=== PATIENT | male | born 1985 | race Caucasian/White ===

== ENCOUNTER → 2022-01-11 17:11 | Outpatient (BNVA) | payer OTHER, SELFPAY | PROVIDERS: Family Provider Electrodiagnostic Medicine; PCP Family Medicine; Visit Provider Family Medicine | DX: Z76.89 Persons encountering health services in other specified circumstances (principal) | CPT/HCPCS: 80053; 85025 ==

== ENCOUNTER 2022-04-17 14:36 | Outpatient (CLI) | payer OTHER, SELFPAY ==
--- NOTE | 2022-04-17 15:04 | XR_ITS ---
WS: [id number] RIGHT SHOULDER: 2 VIEW(S) TECHNIQUE: Internal and external rotation. HISTORY: right shoulder pain COMPARISON: None available. No fracture or dislocation or soft tissue abnormality. Very minimal narrowing of the AC joint. Visualized RIGHT upper lung is clear. XR/XR shoulder RT min 2V* [id number] IMPRESSION: Mild AC joint narrowing.
== END 2022-04-17 14:37 | disposition home or self-care (01) ==
PROVIDERS: PCP Family Medicine; Visit Provider Family Medicine
DX: M75.41 Impingement syndrome of right shoulder (principal)
CPT/HCPCS: 73030

== ENCOUNTER → 2023-03-15 15:27 | Outpatient (BNVA) | payer OTHER, SELFPAY | PROVIDERS: PCP Family Medicine; Visit Provider Family Medicine | DX: E66.01 Morbid (severe) obesity due to excess calories (principal); R53.83 Other fatigue; R35.1 Nocturia | CPT/HCPCS: 80053; 80061; 84153; 84403; 84443; 85025 ==

== ENCOUNTER → 2023-03-20 08:29 | Outpatient (BNVA) | payer SELFPAY | PROVIDERS: PCP Family Medicine; Visit Provider Family Medicine | DX: R53.83 Other fatigue (principal) | CPT/HCPCS: 84403 ==

== ENCOUNTER → 2023-06-05 13:28 | Outpatient (BNVA) | payer OTHER, SELFPAY | PROVIDERS: PCP Family Medicine; Visit Provider Family Medicine | DX: R79.89 Other specified abnormal findings of blood chemistry (principal); Z13.6 Encounter for screening for cardiovascular disorders | CPT/HCPCS: 85025 ==

== ENCOUNTER → 2023-06-12 07:23 | Outpatient (BNVA) | payer OTHER, SELFPAY | PROVIDERS: PCP Family Medicine; Visit Provider Family Medicine | DX: R79.89 Other specified abnormal findings of blood chemistry (principal); Z13.6 Encounter for screening for cardiovascular disorders | CPT/HCPCS: 84403; 85025 ==

== ENCOUNTER → 2023-07-23 13:11 | Outpatient (BNVA) | payer OTHER, SELFPAY | PROVIDERS: PCP Family Medicine; Visit Provider Family Medicine | DX: R79.89 Other specified abnormal findings of blood chemistry (principal) | CPT/HCPCS: 84403 ==

== ENCOUNTER 2023-08-01 15:14 | Outpatient (CLI) | payer OTHER, SELFPAY ==
--- NOTE | 2023-08-01 15:30 | US_ITS ---
WS: [id number] TESTICULAR ULTRASOUND HISTORY: bilateral testicular pain COMPARISON: None available. TECHNIQUE: Real-time and color Doppler imaging or utilized to perform a testicular ultrasound. Right testicle: 3.9 cm x 2.5 cm x 1.6 cm. Normal size and echogenicity. No mass or torsion. Normal color Doppler is present throughout. Systolic and diastolic velocities are both present. No significant hydrocele. Right epididymis: Normal epididymis with no increased vascularity. Left testicle: 3.8 cm x 2.6 cm x 1.8 cm. Normal size and echogenicity. No mass or torsion. Normal color Doppler is present throughout. Systolic and diastolic velocities are both present. No significant hydrocele. Left epididymis: LEFT spermatocele measures 7 x 7 x 6 mm. No increased vascularity. Minimal LEFT vari cocele. IMPRESSION: 1. No testicular mass or torsion. 2. Small LEFT spermatocele. 3. Mild LEFT varicocele.
== END 2023-08-01 15:15 | disposition home or self-care (01) ==
PROVIDERS: PCP Family Medicine; Visit Provider Family Medicine
DX: N50.811 Right testicular pain (principal); N50.812 Left testicular pain; N43.40 Spermatocele of epididymis, unspecified; I86.1 Scrotal varices
CPT/HCPCS: 76870

== ENCOUNTER → 2023-11-02 07:46 | Outpatient (BNVA) | payer OTHER, SELFPAY | PROVIDERS: PCP Family Medicine; Visit Provider Family Medicine | DX: R79.89 Other specified abnormal findings of blood chemistry (principal) | CPT/HCPCS: 84403 ==

== ENCOUNTER → 2023-11-18 10:23 | Outpatient (BNVA) | payer OTHER, SELFPAY | PROVIDERS: PCP Family Medicine; Visit Provider Nurse Practitioner | DX: R09.81 Nasal congestion (principal); J01.90 Acute sinusitis, unspecified; J01.40 Acute pansinusitis, unspecified | CPT/HCPCS: 87400 ==

== ENCOUNTER → 2023-12-10 13:23 | Outpatient (BNVA) | payer OTHER, SELFPAY | PROVIDERS: PCP Family Medicine; Visit Provider Nurse Practitioner Family | DX: R39.9 Unspecified symptoms and signs involving the genitourinary system (principal); N39.0 Urinary tract infection, site not specified | CPT/HCPCS: 81000; 87086 ==

== ENCOUNTER → 2023-12-21 10:36 | Outpatient (BNVA) | payer OTHER, SELFPAY | PROVIDERS: PCP Family Medicine; Visit Provider Family Medicine | DX: R30.0 Dysuria (principal); R79.89 Other specified abnormal findings of blood chemistry | CPT/HCPCS: 81000 ==

== ENCOUNTER 2024-01-09 09:34 | Outpatient (CLI) | payer OTHER, SELFPAY ==
[2024-01-09] MEDS: iohexol 300 mg/mL 100 mL Btl PO (10:11)
--- NOTE | 2024-01-09 11:00 | CT_ITS ---
WS: [id number] Examination: CT abdomen pelvis w con* [id number] Reason for Exam: rlq pain, hematuria for 4 weeks Date: January 09, 2024 Comparison: None. DLP: 1009.[address] scans at [facility] use at least one of these dose optimization techniques: automated e xposure control; mA and/or kV adjustment per patient size (includes targeted exams where dose is matc hed to clinical indication); or iterative reconstruction. Findings: The heart is normal in size. There is no pleural effusion. The liver is normal in size and appearance. The gallbladder is present. The portal vein is patent. The spleen is unremarkable. There is no adrenal mass. The kidneys are well-perfused. There is no hydronephrosis. There is a nonob structing stone of the right kidney. No renal mass is seen. The aorta is normal in size and appearance The pancreas is unremarkable There is no small bowel obstruction. There is thickening of the periappendiceal cecum. The appendix is enlarged. There is increased densit y/inflammatory change along the length of the appendix especially distally. Small mesenteric and right lower quadrant lymph nodes are identified. Impression: There is a right lower quadrant abnormality identified with periappendiceal cecal thickening. The clint endix is enlarged measuring at least 10 mm. There is increased density along the appendix particularl y at its tip. This may represent an acute/chronic appendicitis however more aggressive etiologies suc h as malignancy could also have this appearance. Surgical consultation is needed. I discussed these findings and recommendations with Dr. Gonzales in his office at 4:21 p.m. 01/09/2024. Dr Bonny Be was out of town..
[2024-01-09] MEDS: iohexol 350 mg/mL 500 mL Btl (per mL) IV (11:13)
== END 2024-01-09 09:35 | disposition home or self-care (01) ==
LOC: RAD 09:36
PROVIDERS: PCP Family Medicine; Visit Provider Family Medicine
DX: R10.31 Right lower quadrant pain (principal)
CPT/HCPCS: 74177; Q9967

== ENCOUNTER 2024-02-07 05:57 | Day surgery (SDC) | payer OTHER, SELFPAY ==
[2024-02-07 06:13] VITALS: BP 126/96; PULSE 89; RESP 18; TEMP 36.2; O2SAT 96; BMI 38.7
--- NOTE | 2024-02-07 06:27 | P.HPUD_ITS ---
Surgery/Procedure H&P Update DATE OF PROCEDURE: February 07, 2024 DATE H&P PERFORMED: 01/30/24 H&P UPDATE INFORMATION: I have reviewed H&P completed within last 30 days, I have examined patient prior to procedure, No changes to prior documentation and H&P is in [facility] EMR on date indicated PLANNED PROCEDURE: Operation Date: 02/07/24 07:00 Proposed Procedures p Colonoscopy 77612, G0105, R10.31, R31.29(Not Applicable) - Janusz Mckinney MD
--- NOTE | 2024-02-07 06:56 | ANES.PREANE2 ---
Pre-Anesthetic Assessment Height/Weight: Height 1.78 m Weight 122.47 kg Temp Pulse Resp BP Pulse Ox O2 Del Method 97.2 F L 89 18 126/96 96 Room Air 02/07/24 06:13 02/07/24 06:13 02/07/24 06:13 02/07/24 06:13 02/07/24 06:13 02/07/24 06:13 Preop Diagnosis: screening Operation Date: 02/07/24 07:00 Proposed Procedures p Colonoscopy 24807, G0105, R10.31, R31.29(Not Applicable) - Janusz Mckinney MD Familial anesthetic complications: none Was Beta Sebas taken within 24 hours: N/A Was Clonidine taken within 24 hours: N/A Last intake: Intake Last Liquid Date 02/06/24 Last Liquid Time 22:00 Last Solid Date 02/05/24 Last Solid Time 18:00 Social No alcohol and No tobacco Exam alert and oriented x 3 Airway Submandibular: within normal limits Cervical ROM: within normal limits Mallampati: Class II Dentition: full Pulmonary None reported CV/HEM None reported None reported Hepatic None reported GI None reported Metabolic Morbid Obesity [facility] None reported Neuropsych Anxiety (panic attacks) Anesthetic Plan ASA status: 2 Anesthesia: Anesthesia Evaluation, General and MAC Risk of > 500 ml blood loss (7ml/kg in children): No Medications/Allergies Home Medications Medication Instructions Recorded Confirmed Last Taken Type syringe with needle, safety 3 mL #50 ea 04/20/23 02/04/24 Unknown Rx 23 gauge x 1 1/2 (BD Eclipse Luer-Neda) testosterone cypionate 200 mg/mL 150 mg (0.75 mL) SUBCUT .q 14 days 11/04/23 02/04/24 02/01/24 Rx intramuscular oil #2 mL (Depo-Testosterone) Allergies Allergy/AdvReac Type Severity Reaction Status Date / Time amoxicillin Allergy ALGY-Anaphy Verified 02/04/24 12:06 laxis Penicillins Allergy ALGY-Anaphy Verified 02/04/24 12:06 laxis [facility] Anesthesia Medical History (Updated 01/09/24 @ 16:37 by Brian Gonzales MD) Abnormal computed tomography angiography (CTA) of abdomen and pelvis Right lower quadrant abdominal pain following cholangiogram Family History Other Diabetes Denies family history of CAD (coronary artery disease) Clotting disorder Dementia Hyperlipidemia Psychiatric illness Chronic kidney disease (CKD) Suicide Anesthesia complication Bleeding disorder Family history of premature coronary artery disease Lung disease Cancer Hypertension Stroke Social History Smoking and tobacco/nicotine status: never used tobacco/nicotine Alcohol intake: current Alcohol intake frequency: holidays/special occasions only Substance/Drug Use: never Adopted: No Household members: spouse and children Marital status: Data Anesthesia Cardiac Studies: No Data to Display
[2024-02-07] MEDS: sodium chloride 0.9% 1,000 ML 30 ML IV (07:00)
[2024-02-07 07:29] VITALS: BP 117/73; PULSE 81; RESP 18; TEMP 36.1; O2SAT 93
[2024-02-07 07:44] VITALS: BP 126/74; PULSE 76; RESP 18; O2SAT 96
--- NOTE | 2024-02-07 07:45 | ANE.PACU2 ---
Inpatient post-anesthesia follow up: Airway intact: Yes Vital signs: Temperature 97 F Pulse Rate 76 Respiratory Rate 18 Blood Pressure 126/74 Pulse Oximetry 96 Oxygen Delivery Me thod Room Air Oxygen Flow Rate Fraction of Inspir ed Oxygen Hydration adequate: Yes Nausea and vomiting: No Pain level: 1 Mental status: Baseline
== END 2024-02-07 08:00 | disposition home or self-care (01) ==
PROVIDERS: PCP Family Medicine; Visit Provider Surgery
PROC: 0DJD8ZZ Inspection of Lower Intestinal Tract, Via Natural or Artificial Opening Endoscopic (ICD-10-PCS; CPT 45378; principal; 2024-02-07 07:00)
DX: R10.31 Right lower quadrant pain (principal); K57.92 Diverticulitis of intestine, part unspecified, without perforation or abscess without bleeding; R31.29 Other microscopic hematuria; E66.01 Morbid (severe) obesity due to excess calories; Z68.38 Body mass index [BMI] 38.0-38.9, adult; F41.9 Anxiety disorder, unspecified
CPT/HCPCS: 45378; J2704; J7030

== ENCOUNTER → 2024-02-22 07:50 | Outpatient (BNVA) | payer SELFPAY | PROVIDERS: PCP Family Medicine; Visit Provider Family Medicine | DX: R79.89 Other specified abnormal findings of blood chemistry (principal) | CPT/HCPCS: 84403 ==

== ENCOUNTER → 2024-12-25 09:03 | Outpatient (BNVA) | payer OTHER, SELFPAY | PROVIDERS: PCP Family Medicine; Visit Provider Family Medicine | DX: Z13.6 Encounter for screening for cardiovascular disorders (principal) | CPT/HCPCS: 80053; 80061; 83721; 85025 ==

== ENCOUNTER 2025-06-18 12:45 | Outpatient (CLI) | payer SELFPAY ==
[2025-06-18 13:24] LABS: HF Add Manual Diff No
[2025-06-18 13:28] LABS: Hematocrit 46.8 % (37-53); Hemoglobin 16.10 g/dL (11.27-16.99); Mean Corpuscular HGB Conc 34.4 g/dL (30-55); Mean Corpuscular Hemoglobin 31.4 pg (27-33); Mean Corpuscular Volume 91.4 fl (82-101); Nucleated Red Blood Cells % 0 %; Platelet Count 232 10^3/cmm (157-399); Red Blood Count 5.12 10^6/uL (3.85-5.65); White Blood Count 8.39 10^3/uL (3.29-11.43)
[2025-06-18 13:40] LABS: Estmated Average Glucose 117; Hemoglobin A1C 5.7 % (4.0-6.0)
[2025-06-18 14:13] LABS: Alanine Aminotransferase 36 U/L (0-41); Albumin Level 4.2 g/dL (3.5-5.2); Alkaline Phosphatase 84 U/L (40-130); Anion Gap 15.1 (5-19); Aspartate Amino Transferase 23 U/L (0-40); Blood Urea Nitrogen 11 mg/dL (6-20); Calcium 9.4 mg/dL (8.5-10.5); Carbon Dioxide 22 mmol/L (22-29); Chloride 103 mmol/L (98-107); Cholesterol 182 mg/dL (0-200); Globulin 3.6 g/dL (1.3-4.6); Glucose 87 mg/dL (65-115); HDL Cholesterol 29 mg/dL (60-100); Osmolality Calculated 281 mOsm/kg (285-295); Potassium 4.1 mmol/L (3.5-5.1); Sodium 136 mmol/L (136-145); Total Protein 7.8 g/dL (6.6-8.7); Triglycerides 301 mg/dL (0-150)
== END 2025-06-18 12:46 | disposition home or self-care (01) ==
LOC: LAB 12:46
PROVIDERS: PCP Family Medicine; Visit Provider Dermatology
DX: Z01.89 Encounter for other specified special examinations (principal)
CPT/HCPCS: 36415